=== PATIENT | male | born 1980 | race Caucasian/White ===

== ENCOUNTER 2023-02-18 17:44 | Emergency (ER) | payer BC ==
[2023-02-18] MEDS ORDERED: EPINEPHrine 1 MG/ML SDV IM ONE ×2 (17:49→18:00)
[2023-02-18] MEDS ORDERED: Sodium Chloride 0.9% 1,000 ML IV ONE (17:49)
[2023-02-18] MEDS ORDERED: methylPREDNISolone Sodium Succinate 125 MG/2 ML SDV IM ONE (17:50)
[2023-02-18] MEDS ORDERED: Famotidine 20 MG/2 ML SDV IVPUSH ONE (17:50)
[2023-02-18] MEDS ORDERED: Sodium Chloride 0.9% 10 ML Syringe FLUSH PRN (17:50)
[2023-02-18] MEDS ORDERED: Albuterol 0.083% 2.5 MG/3 ML Neb Soln NEB ONE (18:00)
[2023-02-18 18:09] LABS: BASOPHILS ABSOLUTE AUTO 0.03 K/uL (0.00-0.10); BASOPHILS PERCENT AUTO 0.4 % (0.1-1.3); EOSINOPHILS ABSOLUTE AUTO 0.15 K/uL (0.00-0.40); EOSINOPHILS PERCENT AUTO 2.1 % (0.0-5.4); HEMATOCRIT 43.2 % (38.4-49.7); HEMOGLOBIN 15.2 g/dL (12.9-16.9); IMMATURE GRAN ABSOLUTE AUTO 0.04 K/uL (0.00-0.23); IMMATURE GRAN PERCENT AUTO 0.6 % (0.0-0.7); LYMPHOCYTES ABSOLUTE AUTO 3.61 K/uL (0.8-3.3); LYMPHOCYTES PERCENT AUTO 50.2 % (11.4-47.7); MEAN CORPUSCULAR HGB CONC 35.2 g/dL (31.6-35.5); MONOCYTES ABSOLUTE AUTO 0.63 K/uL (0.20-0.90); MONOCYTES PERCENT AUTO 8.8 % (3.3-12.6); NEUTROPHILS ABSOLUTE AUTO 2.73 K/uL (1.0-7.6); NEUTROPHILS PERCENT AUTO 37.9 % (40.0-78.1); PLATELET COUNT,PLT 242 K/uL (130-375); RED BLOOD CELL COUNT 4.91 M/uL (4.14-5.76); WHITE BLOOD CELL COUNT,WBC 7.2 K/uL (3.2-11.0)
[2023-02-18] MEDS ORDERED: diphenhydrAMINE 50 MG/ML SDV IVPUSH ONE (18:12)
[2023-02-18] MEDS ORDERED: EPINEPHrine 1 MG in Dextrose 5% in Water 99 ML IV SCH ×2 (18:15)
[2023-02-18 18:23] LABS: CALCIUM 8.5 mg/dL (8.5-10.1); CREATININE 0.9 mg/dL (0.8-1.3); EST CRCL DRUG DOSING (CG) 102.39 mL/min; POTASSIUM,K 3.2 mmol/L (3.6-5.2)
[2023-02-18 18:24] LABS: ANION GAP 16.2 mmol/L (5.0-14.0)
== END 2023-02-18 21:21 | disposition home or self-care (01) ==
LOC: JP.ED 17:44
DX: T78.2XXA Anaphylactic shock, unspecified, initial encounter (principal); T63.461A Toxic effect of venom of wasps, accidental (unintentional), initial encounter; Z91.030 Bee allergy status
CPT/HCPCS: 36415; 80048; 85025; 94640; 96372; 96374; 96375; 99282; J0171; J1200; J2930; J3490; J7030